=== PATIENT | male | born 1985 | race Caucasian/White ===

== ENCOUNTER 2018-10-14 06:09 | Emergency (ER) | payer MEDICARE, OTHER ==
[~2018-10-14] VITALS: Ht 180.3 cm; Wt 69.9 kg
--- OUTSIDE RECORDS SUMMARY | 2018-10-14 06:14 | XMS REPORT | Continuity of Care Document ---
Author Author [facility] Organization [facility] Address [facility] [address] [place] [address] Phone Unavailable Support Name Relationship Address Phone JOSHUA MO MD Caregiver [address] [place], [place] [address] STAFF, OTHER NOT ON Caregiver Unknown Unavailable TOMMY PILARNED ROGERS Next Of Kin [address] [place] [address] MOM Insurance Providers Guarantor Farshad Sanders Address [address] [place] [address] MOM Email NO Payer Medicare Policy Number [id number] Subscriber's Name Farshad Sanders Relationship 18 Self / Same As Patient Effective Date 05 Advance Directives Directive Response Recorded Date/Time Advance Directives No 05/15/18 2:51pm Living Will No 05/15/18 2:51pm Power of Artist Consultant for Health Care No 05/15/18 2:51pm Organ, Tissue, or Eye Donor No 05/15/18 2:51pm Do you have a signed organ donor card? No 05/15/18 2:51pm Chief Complaint and Reason for Visit Chief Complaint LEG PAIN Reason for Visit [id number] Problems Medical Problem Onset Date Status Paresthesias Unknown Acute Past Problems Medical Problem Onset Date Status Right arm pain Unknown Acute Right arm weakness Unknown Acute Medications Current Home Medications Medication Dose Units Route Directions Days Qty Instructions Start Date Gabapentin (Neurontin 300 Mg Cap*) 300 Mg Capsule 300 Mg ORAL Three Times A Day 90 Cap Start by taking 1 pill on day 1, then 1 pill twice a day on day 2, then 1 pill 3 times daily. 05/15/18 Ketorolac Tromethamine 10 Mg Tablet 10 Mg ORAL Every 6 Hours as needed for Pain 14 Tablet 05/25/18 No Known Medications . Past Home Medications Medication Directions Ordered Status Ketorolac Tromethamine 10 Mg Tablet, 10 Mg Oral Every 6 Hours as needed for Pain 05/19/18 Discontinued Social History No social history information available. Hospital Discharge Instructions No hospital discharge instruction information available. Plan of Care Discharge Date 05/25/18 1:30am Disposition 01 HOME, [facility],ASSISTED LIVING Condition at Discharge Improved Instructions/Education Provided Paresthesia (ED) Prescriptions See Medication Section Additional Instructions/Education Emergency Department as soon as possible if any worse. Follow up with your doctor either tomorrow or early next week. Follow up for the MRI of the C-spine. Light activity only. Functional Status Query Response Date Recorded Yohan Coma Scale Total 15 May 25, 2018 1:09am Patient Behavior Cooperative May 25, 2018 1:09am Allergies, Adverse Reactions, Alerts Allergen Type Severity Reaction Status Last Updated Hydrocodone Adverse Reaction Unknown Easily addicted Active 05/15/18 Immunizations Query Response on File Recorded Date/Time Hx Diphtheria, Pertussis, Tetanus Vaccination Up To Date 05/15/18 2:20pm Hx Influenza Vaccination N - REFUSES 05/19/18 10:44am Vital Signs Acute Vital Signs Vital Response Date/Time Temperature (Fahrenheit) 98.9 degrees F (97.6 - 99.5) 05/25/2018 1:09am Temperature Source Temporal Artery 05/25/2018 1:09am Pulse Rate (adult) 84 bpm (60 - 90) 05/25/2018 1:09am Respiratory Rate 16 bpm (12 - 24) 05/25/2018 1:09am Blood Pressure 134/74 mm Hg 05/25/2018 1:09am O2 Sat by Pulse Oximetry 98 % (90 - 100) 05/25/2018 1:09am Oxygen Delivery Method Room Air 05/25/2018 1:09am Pain Intensity 0 05/19/2018 11:05am Pain Location Body Site Modifier Left 05/25/2018 1:46am Pain Description Radiating 05/25/2018 1:46am Pain Duration Chronic pain 05/19/2018 11:05am Results Laboratory Results Test Name Result Units Flags Reference Collection Date/Time Result Date/ Time Comments White Blood Count 10.7 K/uL 4.8-10.8 05/19/2018 11:25am 05/19/2018 11: 40am Red Blood Count 4.46 M/uL L 4.70-6.10 05/19/2018 11:25am 05/19/2018 11: 40am Hemoglobin 15.1 gm/dL 14.0-18.0 05/19/2018 11:25am 05/19/2018 11:40am Hematocrit 45.0 % 42.0-52.0 05/19/2018 11:2505/19/2018 11:40am Mean Corpuscular Volume 100.8 fL H 80.0-96.1 05/19/2018 11:am 2017 11:40am Mean Corpuscular Hemoglobin 33.8 pg H 27.0-31.0 05/19/2018 11:05/19 11:40am Mean Corpuscular Hemoglobin Concent 33.5 g/dL 30.0-37.0 05/19/2018 11: am 05/19/2018 11:40am Red Cell Distribution Width 14.1 % 11.5-14.5 05/19/2018 11:am 2017 11:40am Platelet Count 336 K/uL 130-400 05/19/2018 11:am 05/19/2018 11:40am Mean Platelet Volume 8.8 fL 7.4-10.4 05/19/2018 11:05/19/2018 11: 40am Neutrophils (%) (Auto) 78.1 % H 42.2-75.2 05/19/2018 11:am 05/19/2018 11:40am Lymphocytes (%) (Auto) 17.2 % L 20.5-51.1 05/19/2018 11:am 05/19/2018 11:40am Monocytes (%) (Auto) 3.3 % 0-10 05/19/2018 11:05/19/2018 11:40am Eosinophils (%) (Auto) 0.7 % 0-3 05/19/2018 11:05/19/2018 11:40am Basophils (%) (Auto) 0.8 % 0.0-1.0 05/19/2018 11:05/19/2018 11: 40am Neutrophils # (Auto) 8.3 K/uL H 2.0-6.9 05/19/2018 11:am 05/19/2018 11 :40am Lymphocytes # (Auto) 1.8 K/uL 1.2-3.4 05/19/2018 11:2505/19/2018 11: 40am Monocytes # (Auto) 0.4 K/uL 0.1-0.6 05/19/2018 11:2505/19/2018 11: 40am Eosinophils # (Auto) 0.1 K/uL 0.0-0.7 05/19/2018 11:2505/19/2018 11: 40am Basophils # (Auto) 0.1 K/uL 0.0-0.2 05/19/2018 11:2505/19/2018 11: 40am Random Glucose 110 mg/dL 70-110 05/19/2018 11:2505/19/2018 11:43am Blood Urea Nitrogen 12 mg/dL 7-18 05/19/2018 11:05/19/2018 11: 43am Creatinine 0.8 mg/dL 0.70-1.30 05/19/2018 11:2505/19/2018 11:43am Glomerular Filtration Rate Calc 110.7 mL/min 05/19/2018 11:05/19 11:43am Sodium Level 138 mEq/L 136-145 05/19/2018 11:05/19/2018 11:43am Potassium Level 4.0 mEq/L 3.5-5.0 05/19/2018 11:05/19/2018 11: 43am Chloride Level 105 mEq/L 98-107 05/19/2018 11:2505/19/2018 11:43am Carbon Dioxide Level 24.5 mEq/L 21-32 05/19/2018 11:2505/19/2018 11: 43am Calcium Level 8.7 mg/dL L 8.8-10.5 05/19/2018 11:05/19/2018 11: 43am Total Protein 6.9 gm/dL 6.4-8.2 05/19/2018 11:2505/19/2018 11:48am Albumin 3.7 gm/dL 3.4-5.0 05/19/2018 11:2505/19/2018 11:48am Total Bilirubin 0.30 mg/dL 0.00-1.00 05/19/2018 11:2505/19/2018 11: 48am Aspartate Amino Transf (AST/SGOT) 18 U/L 15-37 05/19/2018 11:25am 05/19 11:48am Alanine Aminotransferase (ALT/SGPT) 36 U/L 12-78 05/19/2018 11:25am 11:48am Total Alkaline Phosphatase 89 U/L 46-116 05/19/2018 11:25am 05/19/2018 11:48am Thyroid Stimulating Hormone (TSH) 1.30 uIU/mL 0.36-3.74 05/19/2018 11: 25am 05/19/2018 12:25pm Vitamin B12 Level 563 pg/mL 232-1245 05/19/2018 11:25am 05/22/2018 3: 51pm Serum Folate 7.0 ng/mL >3.0 05/19/2018 11:25am 05/22/2018 3:51pm A serum folate concentration of less than 3.1 ng/mL is considered to represent clinical deficiency. Performed at: DA - [facility] [address], [place], [place] [id number] Centrifugal Drier Operator: STEF Honeycutt MD, Phone: [phone] Procedures Procedure Status Date Provider(s) COMPREHEN METABOLIC PANEL Completed 05/15/18 EMERGENCY DEPT VISIT Completed 05/15/18 COMPREHEN METABOLIC PANEL Completed 05/19/18 VITAMIN B-12 Completed 05/19/18 ASSAY OF FOLIC ACID SERUM Completed 05/19/18 ASSAY THYROID STIM HORMONE Completed 05/19/18 COMPLETE CBC AUTOMATED Completed 05/19/18 THER/PROPH/DIAG INJ SC/IM Completed 05/19/18 EMERGENCY DEPT VISIT Completed 05/19/18 GROUND MILEAGE Completed 05/19/18 BLS-EMERGENCY Completed 05/19/18 ORPHENADRINE INJECTION Completed 05/19/18 Encounters Encounter Location Arrival/Admit Date Discharge/Depart Date Attending Provider Departed Emergency Room [place] 05/25/18 1:09am 05/25/18 1:30am JOSHUA MO MD Registered Emergency Room [place] 05/19/18 10:38am JOSHUA MO MD Departed Emergency Room [place] 05/15/18 2:19pm 05/15/18 3:25pm JOSHUA MO MD Recent Diagnosis
--- OUTSIDE RECORDS SUMMARY | 2018-10-14 06:14 | XMS REPORT | Continuity of Care Document ---
Author Author [facility] Organization [facility] Address [facility] [address] [place] [address] Phone Unavailable Support Name Relationship Address Phone JOSHUA MO MD Caregiver [address] [place], [place] [phone] STAFF, OTHER NOT ON Caregiver Unknown Unavailable SANDERSPILAR KEN Next Of Kin [address] [place] [address] [facility] Insurance Providers Guarantor Farshad Sanders Address [address] [place] [address] MOM Email NO Payer Medicare Policy Number [id number] Subscriber's Name Farshad Sanders Relationship 18 Self / Same As Patient Effective Date 05 Advance Directives Directive Response Recorded Date/Time Advance Directives No 05/15/18 2:51pm Living Will No 05/15/18 2:51pm Health Care Proxy No 05/15/18 2:51pm Power of Supervisor Brake Repair for Health Care No 05/15/18 2:51pm Organ, Tissue, or Eye Donor No 05/15/18 2:51pm Do you have a signed organ donor card? No 05/15/18 2:51pm Chief Complaint and Reason for Visit Chief Complaint NUMBNESS Reason for Visit [id number] Problems Active ProblemsNo active problem information available. Past Problems Medical Problem Onset Date Status [...] then 1 pill 3 times daily. 05/15/18 No Known Medications . Social History No social history information available. Hospital Discharge Instructions No hospital discharge instruction information available. Plan of Care Discharge Date 05/15/18 3:25pm Condition at Discharge Stable Instructions/Education Provided Chronic Pain (DC) Prescriptions See Medication Section Additional Instructions/Education Follow up with her doctor this week or next week. Return to the emergency room as soon as possible if any worse. Functional Status Query Response Date Recorded Yohan Coma Scale Total 15 May 15, 2018 2:19pm Patient Behavior Appropriate May 15, 2018 2:20pm Allergies, Adverse Reactions, Alerts Allergen Type Severity Reaction Status Last Updated Hydrocodone Adverse Reaction Unknown Easily addicted Active 05/15/18 Immunizations Query Response on File Recorded Date/Time Hx Diphtheria, Pertussis, Tetanus Vaccination Up To Date 05/15/18 2:20pm Hx Influenza Vaccination N - refusal 05/15/18 2:20pm Vital Signs Acute Vital Signs Vital Response Date/Time Temperature (Fahrenheit) 98.2 degrees F (97.6 - 99.5) 05/15/2018 2:20pm Temperature Source Oral 05/15/2018 2:20pm Pulse Rate (adult) 87 bpm (60 - 90) 05/15/2018 3:25pm Respiratory Rate 18 bpm (12 - 24) 05/15/2018 3:25pm Blood Pressure 129/82 mm Hg 05/15/2018 3:25pm O2 Sat by Pulse Oximetry 97 % (90 - 100) 05/15/2018 3:25pm Oxygen Delivery Method Room Air 05/15/2018 3:25pm Height 5 ft 10 in 05/15/2018 2:20pm Weight 154.32 lb 05/15/2018 2:20pm Body Mass Index 22.0 kg/m^2 05/15/2018 2:20pm Results Laboratory Results Test Name Result Units Flags Reference Collection Date/Time Result Date/ Time Comments Random Glucose 112 mg/dL H 70-110 05/15/2018 3:20pm 05/15/2018 3:28pm Blood Urea Nitrogen 8 mg/dL 7-18 05/15/2018 3:20pm 05/15/2018 3:28pm Creatinine 0.9 mg/dL 0.70-1.30 05/15/2018 3:20pm 05/15/2018 3:28pm Glomerular Filtration Rate Calc 96.6 mL/min 05/15/2018 3:20pm 2017 3:28pm Sodium Level 139 mEq/L 136-145 05/15/2018 3:20pm 05/15/2018 3:28pm Potassium Level 4.0 mEq/L 3.5-5.0 05/15/2018 3:20pm 05/15/2018 3:28pm Chloride Level 105 mEq/L 98-107 05/15/2018 3:20pm 05/15/2018 3:28pm Carbon Dioxide Level 25.5 mEq/L 21-32 05/15/2018 3:20pm 05/15/2018 3: 28pm Calcium Level 8.5 mg/dL L 8.8-10.5 05/15/2018 3:20pm 05/15/2018 3:28pm Total Protein 6.8 gm/dL 6.4-8.2 05/15/2018 3:20pm 05/15/2018 3:44pm Albumin 3.6 gm/dL 3.4-5.0 05/15/2018 3:20pm 05/15/2018 3:44pm Total Bilirubin 0.30 mg/dL 0.00-1.00 05/15/2018 3:20pm 05/15/2018 3: 44pm Aspartate Amino Transf (AST/SGOT) 20 U/L 15-37 05/15/2018 3:20pm 2017 3:44pm Alanine Aminotransferase (ALT/SGPT) 36 U/L 12-78 05/15/2018 3:20pm 3:44pm Total Alkaline Phosphatase 83 U/L 46-116 05/15/2018 3:20pm 05/15/2018 3 :44pm Procedures No procedure information available. Encounters Encounter Location Arrival/Admit Date Discharge/Depart Date Attending Provider Departed Emergency Room [place] 05/15/18 2:19pm 05/15/18 3:25pm JOSHUA MO MD Recent Diagnosis
[2018-10-14] MEDS ORDERED: NS IV 1000 ML 1,000 ML IV ONE ×2 (06:46→08:32)
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
[2018-10-14 07:27] LABS: BASOPHILS % (AUTO) 0 % (0-10); EOSINOPHILS % (AUTO) 0 % (0-10); HEMATOCRIT 41 % (40-54); HEMOGLOBIN 13.7 G/DL (13.3-17.7); LYMPHOCYTES # (AUTO) 1.2 X 10^3 (1.0-4.0); LYMPHOCYTES % (AUTO) 7 % (12-44); MEAN CORPUSCULAR HEMOGLOBIN 34 PG (25-34); MEAN CORPUSCULAR HGB CONC 34 G/DL (32-36); MEAN CORPUSCULAR VOLUME 100 FL (80-99); MEAN PLATELET VOLUME 9.1 FL (7.4-10.4); MONOCYTES # (AUTO) 0.7 X 10^3 (0.0-1.0); MONOCYTES % (AUTO) 5 % (0-12); NEUTROPHILS # (AUTO) 14.2 X 10^3 (1.8-7.8); NEUTROPHILS % (AUTO) 88 % (42-75); PLATELET COUNT 255 10^3/uL (130-400); RED CELL DISTRIBUTION WIDTH 12.9 % (10.0-14.5); WHITE BLOOD COUNT 16.2 10^3/uL (4.3-11.0)
[2018-10-14 07:46] LABS: ALANINE AMINOTRANSFERASE 46 U/L (0-55); ALBUMIN 4.2 GM/DL (3.2-4.5); ALKALINE PHOSPHATASE 83 U/L (40-136); BILIRUBIN,TOTAL 0.7 MG/DL (0.1-1.0); BUN/CREATININE RATIO 26; CALCIUM 8.7 MG/DL (8.5-10.1); CARBON DIOXIDE 23 MMOL/L (21-32); CHLORIDE 104 MMOL/L (98-107); CREATINE KINASE 1358 U/L (30-200); GFR ESTIMATED > 60; GLUCOSE 133 MG/DL (70-105); POTASSIUM 3.7 MMOL/L (3.6-5.0); SODIUM 137 MMOL/L (135-145); TOTAL PROTEIN 6.4 GM/DL (6.4-8.2)
[2018-10-14 07:55] LABS: BAND NEUTROPHILS 0 %; BASOPHILS % (MANUAL) 0 %; EOSINOPHILS % (MANUAL) 1 %; LYMPHOCYTES % (MANUAL) 6 %; MONOCYTES % (MANUAL) 4 %; NEUTROPHILS % (MANUAL) 89 %
[2018-10-14 07:56] LABS: RBC MORPH NORMAL
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
[2018-10-14] MEDS ORDERED: cefTRIAXone FOR IV USE 1,000 MG in WATER (STERILE) FOR INJECTION 10 ML IV ONE (09:00)
[2018-10-14 10:47] LABS: BILIRUBIN,URINE NEGATIVE (NEGATIVE); CLARITY,URINE CLEAR; COLOR,URINE YELLOW; GLUCOSE, URINE (UA) NEGATIVE (NEGATIVE); KETONES,URINE 2+ (NEGATIVE); LEUKOCYTE ESTERASE ,URINE NEGATIVE (NEGATIVE); NITRITE,URINE NEGATIVE (NEGATIVE); PH,URINE 6 (5-9); PROTEIN,URINE NEGATIVE (NEGATIVE); UROBILINOGEN,URINE 4 MG/DL (NORMAL)
[2018-10-14] MEDS ORDERED: CEPH-507 PO ×2 (10:47→22:17)
[2018-10-14 10:49] VITALS: BP 119/77
--- NOTE | 2018-10-14 10:53 | NUR ---
Pt agitated and wants to leave. Pt has not received rocephin and is refusing further treatment. Dr. Walker notified.
[2018-10-14 11:06] LABS: BACTERIA,URINE NEGATIVE /HPF
[2018-10-14 11:12] LABS: AMPHETAMINE SCREEN, URINE POSITIVE (NEGATIVE); BARBITURATE SCREEN URINE NEGATIVE (NEGATIVE); BENZODIAZEPINES SCREEN URINE NEGATIVE (NEGATIVE); CANNABINOID SCREEN, URINE POSITIVE (NEGATIVE); COCAINE SCREEN URINE NEGATIVE (NEGATIVE); METHADONE STAT NEGATIVE (NEGATIVE); METHAMPHETAMINE SCREEN URINE S NEGATIVE (NEGATIVE); OPIATE SCREEN URINE NEGATIVE (NEGATIVE); OXYCODONE STAT NEGATIVE (NEGATIVE); PROPOXYPHENE STAT NEGATIVE (NEGATIVE); TRICYCLIC ANTIDEPRESSANTS SCRE NEGATIVE (NEGATIVE)
== END 2018-10-14 10:54 | disposition home or self-care (01) ==
LOC: EDUNIT# 06:09 → ER 06:11
DX: M62.82 Rhabdomyolysis (principal); F19.10 Other psychoactive substance abuse, uncomplicated; D72.829 Elevated white blood cell count, unspecified; F12.10 Cannabis abuse, uncomplicated; F15.10 Other stimulant abuse, uncomplicated; F98.8 Other specified behavioral and emotional disorders with onset usually occurring in childhood and adolescence; F90.9 Attention-deficit hyperactivity disorder, unspecified type; F17.200 Nicotine dependence, unspecified, uncomplicated; Z87.820 Personal history of traumatic brain injury; Z87.19 Personal history of other diseases of the digestive system; Z88.5 Allergy status to narcotic agent
CPT/HCPCS: 36415; 71046; 80053; 80306; 80320; 81000; 82550; 85007; 85027; 96360; 96361

== ENCOUNTER 2018-10-14 21:42 | Emergency (ER) | payer MEDICARE ==
[~2018-10-14] VITALS: Ht 180.3 cm; Wt 72.6 kg
[~2018-10-14 21:42] MED LIST: CEPH-507 PO
[2018-10-14] MEDS ORDERED: CEPH-507 PO (22:17)
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
--- NOTE | 2018-10-14 23:02 | NUR ---
PPD arrival to the ER.
--- NOTE | 2018-10-14 23:21 | NUR ---
Provider has elected to contact [facility] for a screening.
--- NOTE | 2018-10-14 23:22 | NUR ---
Patient care report given to Talon Tyson RN
[2018-10-15 02:17] VITALS: BP 115/74
== END 2018-10-15 02:17 | disposition home or self-care (01) ==
LOC: EDUNIT# 21:42 → ER 21:43
DX: L03.115 Cellulitis of right lower limb (principal); R45.851 Suicidal ideations; E11.40 Type 2 diabetes mellitus with diabetic neuropathy, unspecified; F98.8 Other specified behavioral and emotional disorders with onset usually occurring in childhood and adolescence; F90.9 Attention-deficit hyperactivity disorder, unspecified type; F15.10 Other stimulant abuse, uncomplicated; F12.10 Cannabis abuse, uncomplicated; F17.210 Nicotine dependence, cigarettes, uncomplicated; Z87.820 Personal history of traumatic brain injury; Z87.19 Personal history of other diseases of the digestive system; Z88.5 Allergy status to narcotic agent
CPT/HCPCS: 99283

== ENCOUNTER 2022-10-27 03:16 | Emergency (ER) | payer MEDICARE ==
[2022-10-27 03:42] LABS: BASOPHILS # (AUTO) 0.1 10^3/uL (0.0-0.1); BASOPHILS % (AUTO) 1 % (0-10); EOSINOPHILS # (AUTO) 0.2 10^3/uL (0.0-0.3); EOSINOPHILS % (AUTO) 2 % (0-10); HEMATOCRIT 45 % (40-54); HEMOGLOBIN 15.5 g/dL (13.3-17.7); LYMPHOCYTES # (AUTO) 1.7 10^3/uL (1.0-4.0); LYMPHOCYTES % (AUTO) 20 % (12-44); MEAN CORPUSCULAR HEMOGLOBIN 34 pg (25-34); MEAN CORPUSCULAR HGB CONC 34 g/dL (32-36); MEAN CORPUSCULAR VOLUME 100 fL (80-99); MEAN PLATELET VOLUME 8.9 fL (9.0-12.2); MONOCYTES # (AUTO) 0.9 10^3/uL (0.0-1.0); MONOCYTES % (AUTO) 10 % (0-12); NEUTROPHILS # (AUTO) 5.9 10^3/uL (1.8-7.8); NEUTROPHILS % (AUTO) 67 % (42-75); PLATELET COUNT 232 10^3/uL (130-400); WHITE BLOOD COUNT 8.8 10^3/uL (4.3-11.0)
[2022-10-27 03:53] LABS: SALICYLATE < 5.0 MG/DL (5.0-20.0)
[2022-10-27 03:55] LABS: ALANINE AMINOTRANSFERASE 29 U/L (0-55); ALKALINE PHOSPHATASE 67 U/L (40-136); BILIRUBIN,TOTAL 0.3 MG/DL (0.1-1.0); BUN/CREATININE RATIO 26; CALCIUM 8.8 MG/DL (8.5-10.1); CARBON DIOXIDE 18 MMOL/L (21-32); CHLORIDE 105 MMOL/L (98-107); CREATININE SERUM 0.87 MG/DL (0.60-1.30); GFR ESTIMATED 113; GLUCOSE 109 MG/DL (70-105); POTASSIUM 3.8 MMOL/L (3.6-5.0); SODIUM 139 MMOL/L (135-145); TOTAL PROTEIN 6.7 GM/DL (6.4-8.2)
[2022-10-27 03:56] LABS: ACETAMINOPHEN < 10 UG/ML (10-30)
[2022-10-27 04:10] LABS: BILIRUBIN,URINE NEGATIVE (NEGATIVE); CLARITY,URINE CLEAR; COLOR,URINE YELLOW; GLUCOSE, URINE (UA) NEGATIVE (NEGATIVE); KETONES,URINE NEGATIVE (NEGATIVE); LEUKOCYTE ESTERASE ,URINE NEGATIVE (NEGATIVE); NITRITE,URINE NEGATIVE (NEGATIVE); PROTEIN,URINE NEGATIVE (NEGATIVE)
[2022-10-27 04:23] LABS: BACTERIA,URINE NEGATIVE /HPF; SQUAMOUS EPITHELIAL CELL,UR RARE /HPF
[2022-10-27 04:24] LABS: AMPHETAMINE SCREEN, URINE NEGATIVE (NEGATIVE); BARBITURATE SCREEN URINE NEGATIVE (NEGATIVE); BENZODIAZEPINES SCREEN URINE NEGATIVE (NEGATIVE); CANNABINOID SCREEN, URINE POSITIVE (NEGATIVE); COCAINE SCREEN URINE NEGATIVE (NEGATIVE); METHADONE STAT NEGATIVE (NEGATIVE); OPIATE SCREEN URINE NEGATIVE (NEGATIVE); OXYCODONE STAT NEGATIVE (NEGATIVE); PROPOXYPHENE STAT NEGATIVE (NEGATIVE); TRICYCLIC ANTIDEPRESSANTS SCRE NEGATIVE (NEGATIVE)
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
[2022-10-27 10:19] VITALS: BP 121/83
== END 2022-10-27 10:19 ==
LOC: EDUNIT# 03:16 → ER 03:17
DX: F32.A Depression, unspecified (principal); F17.210 Nicotine dependence, cigarettes, uncomplicated
CPT/HCPCS: 80053; 80306; 81000; 85025; 87636; 93005; 99284; G0480 ×3; 36415; 80320; 80329

== ENCOUNTER 2022-12-14 19:58 | Emergency (ER) | payer MEDICARE ==
[~2022-12-14] VITALS: Ht 175 cm; Wt 74.8 kg
[2022-12-14 20:00] VITALS: BP 113/68
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
[2022-12-14 20:26] LABS: BASOPHILS # (AUTO) 0.1 10^3/uL (0.0-0.1); BASOPHILS % (AUTO) 1 % (0-10); EOSINOPHILS # (AUTO) 0.1 10^3/uL (0.0-0.3); EOSINOPHILS % (AUTO) 2 % (0-10); HEMATOCRIT 45 % (40-54); HEMOGLOBIN 15.1 g/dL (13.3-17.7); LYMPHOCYTES # (AUTO) 1.6 10^3/uL (1.0-4.0); LYMPHOCYTES % (AUTO) 26 % (12-44); MEAN CORPUSCULAR HEMOGLOBIN 34 pg (25-34); MEAN CORPUSCULAR HGB CONC 34 g/dL (32-36); MEAN CORPUSCULAR VOLUME 100 fL (80-99); MONOCYTES # (AUTO) 0.5 10^3/uL (0.0-1.0); MONOCYTES % (AUTO) 7 % (0-12); NEUTROPHILS % (AUTO) 64 % (42-75); PLATELET COUNT 230 10^3/uL (130-400); WHITE BLOOD COUNT 6.3 10^3/uL (4.3-11.0)
[2022-12-14 20:48] LABS: ACETAMINOPHEN < 10 UG/ML (10-30); ALANINE AMINOTRANSFERASE 20 U/L (0-55); ALBUMIN 4.1 GM/DL (3.2-4.5); ALKALINE PHOSPHATASE 58 U/L (40-136); BILIRUBIN,TOTAL 0.3 MG/DL (0.1-1.0); BUN/CREATININE RATIO 16; CALCIUM 9.2 MG/DL (8.5-10.1); CARBON DIOXIDE 25 MMOL/L (21-32); CHLORIDE 106 MMOL/L (98-107); CREATININE SERUM 0.86 MG/DL (0.60-1.30); GFR ESTIMATED 114; GLUCOSE 116 MG/DL (70-105); POTASSIUM 4.3 MMOL/L (3.6-5.0); SALICYLATE < 0.3 MG/DL (5.0-20.0); SODIUM 142 MMOL/L (135-145); TOTAL PROTEIN 6.5 GM/DL (6.4-8.2)
[2022-12-14 20:59] LABS: BILIRUBIN,URINE NEGATIVE (NEGATIVE); CLARITY,URINE CLEAR; COLOR,URINE YELLOW; GLUCOSE, URINE (UA) NEGATIVE (NEGATIVE); KETONES,URINE NEGATIVE (NEGATIVE); LEUKOCYTE ESTERASE ,URINE NEGATIVE (NEGATIVE); NITRITE,URINE NEGATIVE (NEGATIVE); PH,URINE 6.5 (5-9); PROTEIN,URINE NEGATIVE (NEGATIVE)
[2022-12-14 21:04] LABS: BACTERIA,URINE NEGATIVE /HPF; SQUAMOUS EPITHELIAL CELL,UR RARE /HPF
[2022-12-14 21:05] LABS: AMORPHOUS SEDIMENT,UR MOD AMOR URATES /LPF
[2022-12-14 21:12] LABS: AMPHETAMINE SCREEN, URINE POSITIVE (NEGATIVE); BARBITURATE SCREEN URINE NEGATIVE (NEGATIVE); BENZODIAZEPINES SCREEN URINE NEGATIVE (NEGATIVE); CANNABINOID SCREEN, URINE POSITIVE (NEGATIVE); COCAINE SCREEN URINE NEGATIVE (NEGATIVE); METHADONE STAT NEGATIVE (NEGATIVE); OPIATE SCREEN URINE NEGATIVE (NEGATIVE); OXYCODONE STAT NEGATIVE (NEGATIVE); PROPOXYPHENE STAT NEGATIVE (NEGATIVE); TRICYCLIC ANTIDEPRESSANTS SCRE NEGATIVE (NEGATIVE)
== END 2022-12-14 22:44 ==
LOC: EDUNIT# 19:58 → ER FS 20:00
DX: R45.851 Suicidal ideations (principal); F17.210 Nicotine dependence, cigarettes, uncomplicated; Z20.822 Contact with and (suspected) exposure to COVID-19; Z28.310 Unvaccinated for COVID-19
CPT/HCPCS: 36415; 80053; 80306; 81000; 82947; 85025; 87636; G0480 ×3; 80320; 80329; 93005

== ENCOUNTER 2023-01-14 19:57 | Emergency (ER) | payer MEDICARE ==
[~2023-01-14] VITALS: Ht 180.3 cm; Wt 72.5 kg
[2023-01-14 20:00] VITALS: BP 118/74
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
[2023-01-14 20:10] LABS: BASOPHILS % (AUTO) 1 % (0-10); EOSINOPHILS # (AUTO) 0.2 10^3/uL (0.0-0.3); EOSINOPHILS % (AUTO) 3 % (0-10); HEMATOCRIT 37 % (40-54); HEMOGLOBIN 12.7 g/dL (13.3-17.7); LYMPHOCYTES % (AUTO) 18 % (12-44); MEAN CORPUSCULAR HEMOGLOBIN 34 pg (25-34); MEAN CORPUSCULAR HGB CONC 34 g/dL (32-36); MEAN CORPUSCULAR VOLUME 99 fL (80-99); MEAN PLATELET VOLUME 8.4 fL (9.0-12.2); MONOCYTES # (AUTO) 0.7 10^3/uL (0.0-1.0); MONOCYTES % (AUTO) 13 % (0-12); NEUTROPHILS # (AUTO) 3.7 10^3/uL (1.8-7.8); NEUTROPHILS % (AUTO) 66 % (42-75); PLATELET COUNT 255 10^3/uL (130-400); WHITE BLOOD COUNT 5.6 10^3/uL (4.3-11.0)
[2023-01-14] MEDS ORDERED: NS IV 1000 ML 1,000 ML IV SCH (20:15)
[2023-01-14] MEDS ORDERED: NALOXONE 0.4 MG/ML 1 ML (NARCAN) VIAL IV ONE (20:15)
[2023-01-14 20:29] LABS: ALKALINE PHOSPHATASE 65 U/L (40-136); BILIRUBIN,TOTAL 0.3 MG/DL (0.1-1.0); BUN/CREATININE RATIO 20; CALCIUM 8.4 MG/DL (8.5-10.1); CARBON DIOXIDE 24 MMOL/L (21-32); CHLORIDE 106 MMOL/L (98-107); CREATININE SERUM 0.87 MG/DL (0.60-1.30); GFR ESTIMATED 113; GLUCOSE 105 MG/DL (70-105); POTASSIUM 3.6 MMOL/L (3.6-5.0); SODIUM 141 MMOL/L (135-145)
[2023-01-14 20:30] LABS: ACETAMINOPHEN < 10 UG/ML (10-30); ALANINE AMINOTRANSFERASE 20 U/L (0-55); ALBUMIN 3.8 GM/DL (3.2-4.5)
--- NOTE | 2023-01-14 20:36 | Diagnostic Imaging Report ---
INDICATION: Altered mental status. TECHNIQUE: Single view chest 8:18 PM. CORRELATION STUDY: 10/14/2018 FINDINGS: The heart size, mediastinal configuration and pulmonary vascularity are within normal limits. The lungs are clear with no consolidating infiltrate. There is no significant effusion or pneumothorax. IMPRESSION: 1. Negative appearing single view chest. Dictated by: Dictated on workstation # [id number]
[2023-01-14] MEDS ORDERED: LIDOCAINE UROJET 2% GEL 10 ML PKG TOP ONE (20:45)
--- NOTE | 2023-01-14 22:24 | Diagnostic Imaging Report ---
PROCEDURE: CT head without contrast. TECHNIQUE: Multiple contiguous axial images were obtained through the brain without the use of intravenous contrast. Auto Exposure Controls were utilized during the CT exam to meet ALARA standards for radiation dose reduction. INDICATION: 29-year-old female, altered mental status. CORRELATION: None FINDINGS: There is no midline shift or mass effect. The ventricles and sulci are unremarkable. No evidence for acute intracranial hemorrhage, abnormal extra-axial fluid collections or cerebral edema is present. The basilar cisterns are unremarkable. The bony calvarium is intact. Likely old bilateral nasal bone fracture. Moderate mucosal thickening with opacification of multiple ethmoid air cells. IMPRESSION: Negative appearing noncontrast CT of the head. Dictated by: Dictated on workstation # [id number]
[2023-01-14 22:51] LABS: BILIRUBIN,URINE NEGATIVE (NEGATIVE); CLARITY,URINE CLEAR; GLUCOSE, URINE (UA) NEGATIVE (NEGATIVE); KETONES,URINE NEGATIVE (NEGATIVE); LEUKOCYTE ESTERASE ,URINE NEGATIVE (NEGATIVE); NITRITE,URINE NEGATIVE (NEGATIVE); PROTEIN,URINE NEGATIVE (NEGATIVE)
[2023-01-14 22:55] LABS: BACTERIA,URINE MODERATE /HPF; COLOR,URINE DARK YELLOW
[2023-01-14 23:06] LABS: AMPHETAMINE SCREEN, URINE POSITIVE (NEGATIVE); BARBITURATE SCREEN URINE NEGATIVE (NEGATIVE); BENZODIAZEPINES SCREEN URINE NEGATIVE (NEGATIVE); CANNABINOID SCREEN, URINE POSITIVE (NEGATIVE); COCAINE SCREEN URINE NEGATIVE (NEGATIVE); METHADONE STAT NEGATIVE (NEGATIVE); OPIATE SCREEN URINE NEGATIVE (NEGATIVE); OXYCODONE STAT NEGATIVE (NEGATIVE); PROPOXYPHENE STAT NEGATIVE (NEGATIVE); TRICYCLIC ANTIDEPRESSANTS SCRE NEGATIVE (NEGATIVE)
== END 2023-01-14 23:00 | disposition left against medical advice (07) ==
LOC: EDUNIT# 19:57 → ER FS 20:00
DX: R41.82 Altered mental status, unspecified (principal); F17.210 Nicotine dependence, cigarettes, uncomplicated
CPT/HCPCS: 36415; 70450; 71045; 80053; 80306; 81000; 83735; 84484; 85025; 87088; 93005; 93041; 99284; G0480 ×2; 80320; 80329

== ENCOUNTER 2023-01-17 12:11 | Emergency (ER) | payer MEDICARE ==
[~2023-01-17] VITALS: Ht 180.3 cm; Wt 72.5 kg
[2023-01-17] MEDS ORDERED: NS IV 1000 ML 1,000 ML IV STA ×2 (12:23→13:32)
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
[2023-01-17 12:31] LABS: BASOPHILS # (AUTO) 0.1 10^3/uL (0.0-0.1); BASOPHILS % (AUTO) 1 % (0-10); EOSINOPHILS # (AUTO) 0.2 10^3/uL (0.0-0.3); EOSINOPHILS % (AUTO) 2 % (0-10); HEMATOCRIT 42 % (40-54); HEMOGLOBIN 14.5 g/dL (13.3-17.7); LYMPHOCYTES # (AUTO) 1.3 10^3/uL (1.0-4.0); LYMPHOCYTES % (AUTO) 17 % (12-44); MEAN CORPUSCULAR HEMOGLOBIN 34 pg (25-34); MEAN CORPUSCULAR HGB CONC 34 g/dL (32-36); MEAN CORPUSCULAR VOLUME 99 fL (80-99); MEAN PLATELET VOLUME 8.8 fL (9.0-12.2); MONOCYTES # (AUTO) 0.6 10^3/uL (0.0-1.0); MONOCYTES % (AUTO) 8 % (0-12); NEUTROPHILS # (AUTO) 5.3 10^3/uL (1.8-7.8); NEUTROPHILS % (AUTO) 71 % (42-75); PLATELET COUNT 261 10^3/uL (130-400); WHITE BLOOD COUNT 7.4 10^3/uL (4.3-11.0)
--- NOTE | 2023-01-17 12:53 | Diagnostic Imaging Report ---
PROCEDURE: CT head without contrast. TECHNIQUE: Multiple contiguous axial images were obtained through the brain without the use of intravenous contrast. Auto Exposure Controls were utilized during the CT exam to meet ALARA standards for radiation dose reduction. INDICATION: Generalized weakness. COMPARISON: 01/14/2023. FINDINGS: There is no intracranial hemorrhage, hydrocephalus, cerebral edema, mass, mass effect, or evidence for elevated intracranial pressures. No focal or generalized cerebral edema. There is no abnormal extra-axial collection. There is membrane thickening and opacification of multiple bilateral ethmoid air cells, new from prior. There is slight membrane thickening and mucous retention cysts in the bilateral maxillary sinuses. There is membrane disease in the left frontal sinus. No paranasal sinus air-fluid level. IMPRESSION: 1. Stable normal brain. 2. Progressive paranasal sinus membrane disease without air-fluid level or bony destruction. Dictated by: Dictated on workstation # [id number]
[2023-01-17 13:00] LABS: ALANINE AMINOTRANSFERASE 19 U/L (0-55); ALBUMIN 4.1 GM/DL (3.2-4.5); ALKALINE PHOSPHATASE 77 U/L (40-136); BILIRUBIN,TOTAL 0.2 MG/DL (0.1-1.0); BUN/CREATININE RATIO 12; CALCIUM 8.8 MG/DL (8.5-10.1); CARBON DIOXIDE 23 MMOL/L (21-32); CHLORIDE 108 MMOL/L (98-107); CREATININE SERUM 0.68 MG/DL (0.60-1.30); GFR ESTIMATED 122; GLUCOSE 114 MG/DL (70-105); POTASSIUM 4.5 MMOL/L (3.6-5.0); SODIUM 141 MMOL/L (135-145); TOTAL PROTEIN 6.2 GM/DL (6.4-8.2)
[2023-01-17 13:01] LABS: ACETAMINOPHEN < 10 UG/ML (10-30); SALICYLATE < 5.0 MG/DL (5.0-20.0)
[2023-01-17 13:07] LABS: BILIRUBIN,URINE NEGATIVE (NEGATIVE); CLARITY,URINE CLEAR; COLOR,URINE YELLOW; GLUCOSE, URINE (UA) NEGATIVE (NEGATIVE); KETONES,URINE NEGATIVE (NEGATIVE); LEUKOCYTE ESTERASE ,URINE NEGATIVE (NEGATIVE); NITRITE,URINE NEGATIVE (NEGATIVE); PROTEIN,URINE NEGATIVE (NEGATIVE)
[2023-01-17 13:11] LABS: BACTERIA,URINE NEGATIVE /HPF
[2023-01-17 13:19] LABS: AMPHETAMINE SCREEN, URINE POSITIVE (NEGATIVE); BARBITURATE SCREEN URINE NEGATIVE (NEGATIVE); BENZODIAZEPINES SCREEN URINE NEGATIVE (NEGATIVE); CANNABINOID SCREEN, URINE POSITIVE (NEGATIVE); COCAINE SCREEN URINE NEGATIVE (NEGATIVE); METHADONE STAT NEGATIVE (NEGATIVE); OPIATE SCREEN URINE NEGATIVE (NEGATIVE); OXYCODONE STAT NEGATIVE (NEGATIVE); PROPOXYPHENE STAT NEGATIVE (NEGATIVE); TRICYCLIC ANTIDEPRESSANTS SCRE NEGATIVE (NEGATIVE)
[2023-01-17 14:19] VITALS: BP 134/83
== END 2023-01-17 14:50 | disposition home or self-care (01) ==
LOC: EDUNIT# 12:11 → ER FS 12:13
DX: R53.83 Other fatigue (principal); R53.81 Other malaise; E86.0 Dehydration; F15.10 Other stimulant abuse, uncomplicated; E11.40 Type 2 diabetes mellitus with diabetic neuropathy, unspecified; F17.210 Nicotine dependence, cigarettes, uncomplicated
CPT/HCPCS: 36415; 70450; 80053; 80306; 81000; 85025; 93005; 93041; 99284; G0480 ×3; 80320; 80329

== ENCOUNTER 2023-02-06 20:37 | Emergency (ER) | payer MEDICARE ==
[2023-02-06 20:40] VITALS: BP 132/76
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
== END 2023-02-06 20:50 | disposition left against medical advice (07) ==
LOC: EDUNIT# 20:37 → ER FS 20:38
DX: F15.10 Other stimulant abuse, uncomplicated (principal); F17.210 Nicotine dependence, cigarettes, uncomplicated

== ENCOUNTER 2023-02-08 23:26 | Emergency (ER) | payer MEDICARE ==
[~2023-02-08] VITALS: Ht 167 cm; Wt 63.5 kg
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
[2023-02-09 00:03] LABS: WHITE BLOOD COUNT 8.6 10^3/uL (4.3-11.0)
[2023-02-09 00:04] LABS: BASOPHILS % (AUTO) 1 % (0-10); EOSINOPHILS % (AUTO) 2 % (0-10); HEMATOCRIT 43 % (40-54); HEMOGLOBIN 14.2 g/dL (13.3-17.7); LYMPHOCYTES % (AUTO) 9 % (12-44); MEAN CORPUSCULAR HEMOGLOBIN 35 pg (25-34); MEAN CORPUSCULAR HGB CONC 33 g/dL (32-36); MEAN CORPUSCULAR VOLUME 105 fL (80-99); MEAN PLATELET VOLUME 9.8 fL (9.0-12.2); MONOCYTES % (AUTO) 6 % (0-12); NEUTROPHILS % (AUTO) 81 % (42-75); PLATELET COUNT 263 10^3/uL (130-400)
[2023-02-09 00:05] LABS: BASOPHILS # (AUTO) 0.1 10^3/uL (0.0-0.1); EOSINOPHILS # (AUTO) 0.2 10^3/uL (0.0-0.3); LYMPHOCYTES # (AUTO) 0.8 X 10^3 (1.0-4.0); MONOCYTES # (AUTO) 0.6 X 10^3 (0.0-1.0)
[2023-02-09 00:14] LABS: SMEAR SCAN COMMENT 3+ TOXIC GRANULATION
[2023-02-09 00:15] LABS: BUN/CREATININE RATIO 19; CARBON DIOXIDE 21 MMOL/L (21-32); CHLORIDE 109 MMOL/L (98-107); CREATININE SERUM 0.86 MG/DL (0.60-1.30); GFR ESTIMATED 114; GLUCOSE 137 MG/DL (70-105); POTASSIUM 4.3 MMOL/L (3.6-5.0); SODIUM 142 MMOL/L (135-145)
[2023-02-09 00:16] LABS: ACETAMINOPHEN < 10 UG/ML (10-30); ALANINE AMINOTRANSFERASE 25 U/L (0-55); ALKALINE PHOSPHATASE 80 U/L (40-136); BILIRUBIN,TOTAL 0.2 MG/DL (0.1-1.0); SALICYLATE < 0.3 MG/DL (5.0-20.0); TOTAL PROTEIN 6.5 GM/DL (6.4-8.2)
[2023-02-09 00:28] LABS: CLARITY,URINE SL CLOUDY; COLOR,URINE YELLOW; GLUCOSE, URINE (UA) NEGATIVE (NEGATIVE); KETONES,URINE NEGATIVE (NEGATIVE); LEUKOCYTE ESTERASE ,URINE NEGATIVE (NEGATIVE); NITRITE,URINE NEGATIVE (NEGATIVE); PROTEIN,URINE NEGATIVE (NEGATIVE)
[2023-02-09 00:41] LABS: BACTERIA,URINE NEGATIVE /HPF; RBC,URINE RARE /HPF
[2023-02-09 00:42] LABS: CALCIUM OXALATE CRYSTALS,UR LARGE /LPF; HYALINE CASTS, URINE RARE /LPF; SQUAMOUS EPITHELIAL CELL,UR RARE /HPF
[2023-02-09 00:43] LABS: BILIRUBIN,URINE 1+ (NEGATIVE); URINE OTHER FEW SPERMATOZOA /HPF
[2023-02-09 00:44] LABS: AMPHETAMINE SCREEN, URINE POSITIVE (NEGATIVE); BARBITURATE SCREEN URINE NEGATIVE (NEGATIVE); BENZODIAZEPINES SCREEN URINE NEGATIVE (NEGATIVE); CANNABINOID SCREEN, URINE POSITIVE (NEGATIVE); COCAINE SCREEN URINE NEGATIVE (NEGATIVE); METHADONE STAT NEGATIVE (NEGATIVE); OPIATE SCREEN URINE NEGATIVE (NEGATIVE); OXYCODONE STAT NEGATIVE (NEGATIVE); PROPOXYPHENE STAT NEGATIVE (NEGATIVE); TRICYCLIC ANTIDEPRESSANTS SCRE NEGATIVE (NEGATIVE)
[2023-02-09 17:15] VITALS: BP 125/69
== END 2023-02-09 17:15 ==
LOC: EDUNIT# 23:26 → ER FS 23:32
DX: R45.851 Suicidal ideations (principal); R21 Rash and other nonspecific skin eruption; F17.210 Nicotine dependence, cigarettes, uncomplicated; Z20.822 Contact with and (suspected) exposure to COVID-19; Z28.310 Unvaccinated for COVID-19
CPT/HCPCS: 80053; G0480 ×3; 36415; 80306; 80320; 80329; 81000; 85025; 87636; 93005

== ENCOUNTER 2023-02-22 18:46 | Emergency (ER) | payer MEDICARE ==
[~2023-02-22] VITALS: Ht 177.8 cm; Wt 81.6 kg
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
[2023-02-22 19:00] VITALS: BP 136/98
== END 2023-02-22 19:06 | disposition home or self-care (01) ==
LOC: EDUNIT# 18:46 → ER FS 18:47
DX: R55 Syncope and collapse (principal); F17.210 Nicotine dependence, cigarettes, uncomplicated; Z59.02 Unsheltered homelessness
CPT/HCPCS: 93005